=== PATIENT | male | born 1985 | race Caucasian/White ===

== ENCOUNTER 2021-05-09 01:23 | Emergency (ER) | payer OTHER ==
[2021-05-09 01:56] LABS: BASOPHILS # (AUTO) 0.1 10^3/uL (0.0-0.1); BASOPHILS % (AUTO) 0.7 %; EOSINOPHILS # (AUTO) 0.2 10^3/uL (0.0-0.7); EOSINOPHILS % (AUTO) 2.2 %; HCT - HEMATOCRIT 45.9 % (42.0-52.0); HGB - HEMOGLOBIN 15.4 g/dL (14.0-18.0); LYMPHOCYTES # (AUTO) 2.9 10^3/uL (1.5-3.5); LYMPHOCYTES % (AUTO) 35.2 %; MEAN CORPUSCULAR HEMOGLOBIN 28.2 pg (27.0-31.0); MEAN CORPUSCULAR HGB CONC 33.6 g/dL (32.0-36.0); MEAN CORPUSCULAR VOLUME 84.1 fL (80.0-94.0); MEAN PLATELET VOLUME 9.9 fL (7.4-11.4); MONOCYTES # (AUTO) 0.6 10^3/uL (0.0-1.0); MONOCYTES % (AUTO) 7.8 %; NEUTROPHILS # (AUTO) 4.3 10^3/uL (1.5-6.6); NEUTROPHILS % (AUTO) 53.7 %; PLT - PLATELET COUNT 221 10^3/uL (130-450); RED BLOOD COUNT 5.46 10^6/uL (4.70-6.10); RED CELL DISTRIBUTION WIDTH 12.1 % (12.0-15.0); WHITE BLOOD COUNT 8.1 x10^3/uL (4.8-10.8)
[2021-05-09 02:12] LABS: ALBUMIN 4.2 g/dL (3.2-5.5); ALBUMIN/GLOBULIN RATIO 1.9 (1.0-2.2); BILIRUBIN,TOTAL 0.5 mg/dL (0.2-1.0); CREATININE 0.9 mg/dL (0.6-1.2); POTASSIUM 3.5 mmol/L (3.5-5.0); TOTAL PROTEIN 6.4 g/dL (6.7-8.2)
--- NOTE | 2021-05-09 02:26 | XRAY Report ---
PROCEDURE: Chest 1 View X-Ray INDICATIONS: chest pain TECHNIQUE: One view of the chest was acquired. COMPARISON: None. FINDINGS: Surgical changes and devices: None. Lungs and pleura: No pleural effusions or pneumothorax. Lungs are clear. Mediastinum: Mediastinal contours appear normal. Heart size is normal. Bones and chest wall: No suspicious bony lesions. Overlying soft tissues appear unremarkable. IMPRESSION: No acute cardiopulmonary disease. Reviewed by: Jessica Spears MD on 05/09/2021 2:25 AM [facility] Approved by: Jessica Spears MD on 05/09/2021 2:25 AM [facility] Station ID: [id number]
[2021-05-09] MEDS ORDERED: diltiaZEM INJ 5 MG/ML VIAL IVP STA (02:44)
--- NOTE | 2021-05-09 03:18 | ED Physician Documentation ---
History of Present Illness - Stated complaint Stated Complaint: HIGH HR, SOA - Chief complaint Chief Complaint: Cardiac - History obtained from History obtained from: Patient - History of Present Illness Timing: Enter time (2199), Today - Additonal information Additional information: 35-year-old male with a prior history of an episode of atrial fibrillation 2 years ago which spontaneously converted after 16 hours, has developed symptoms again this evening while at rest.He states that he has been in excellent physical condition and has no other specific symptoms and no other medical history. He reports that he was on a medication for several months after this initial episode and then this was discontinued he does not know what that medication was.The patient states his symptoms are mild but he can feel that his heart is rapid and irregular. He denies any specific shortness of breath or near syncope. Denies any chest pain. Denies any recent illness. Review of Systems Constitutional: denies: Fever Eyes: denies: Decreased vision Ears: denies: Ear pain Nose: denies: Congestion Throat: denies: Sore throat Cardiac: reports: Palpitations. denies: Chest pain / pressure, Pedal edema, Calf pain Respiratory: denies: Dyspnea, Cough, Wheezing GI: denies: Abdominal Pain, Nausea, Vomiting, Constipation, Diarrhea : denies: Dysuria, Frequency Skin: denies: Rash Musculoskeletal: denies: Neck pain, Back pain, Extremity pain Neurologic: denies: Generalized weakness, Focal weakness, Numbness PD PAST MEDICAL HISTORY - Past Medical History Past Medical History: No Cardiovascular: Atrial fibrillation Respiratory: None Neuro: None Endocrine/Autoimmune: None GI: None : None HEENT: None Psych: None Musculoskeletal: None Derm: None - Past Surgical History Past Surgical History: No - Present Medications Home Medications: Ambulatory Orders Medication Instructions Recorded Confirmed No Known Home Medications 05/09/21 05/09/21 - Allergies Allergies/Adverse Reactions: Allergies Allergy/AdvReac Type Severity Reaction Status Date / Time No Known Drug Allergies Allergy Verified 05/09/21 01:44 - Social History Does the pt smoke?: No Smoking Status: Former smoker Does the pt drink ETOH?: No Does the pt have substance abuse?: No - Immunizations Immunizations are current?: Yes - POLST Patient has POLST: No PD ED PE NORMAL - Vitals Vital signs reviewed: Yes (Hypertensive) - General General: Alert and oriented X 3, No acute distress, Well developed/nourished - HEENT HEENT: Atraumatic, PERRL, EOMI - Neck Neck: Supple, no meningeal sign, No bony TTP - Cardiac Cardiac: No murmur, Other (Tachycardic irregularly irregular rhythm rate approximately 120) - Respiratory Respiratory: No respiratory distress, Clear bilaterally - Abdomen Abdomen: Normal bowel sounds, Soft, Non tender, Non distended, No organomegaly - Back Back: No CVA TTP, No spinal TTP - Derm Derm: Normal color, Warm and dry, No rash - Extremities Extremities: No deformity, No edema - Neuro Neuro: Alert and oriented X 3, a operator 2-12 intact, No motor deficit, No sensory deficit, Normal speech Eye Opening: Spontaneous Motor: Obeys Commands Verbal: Oriented GCS Score: 15 - Psych Psych: Normal mood, Normal affect Results - Vitals Vitals: Vital Signs - 24 hr 05/09/21 05/09/21 05/09/21 01:27 01:48 03:00 Temperature 36.6 C Heart Rate 98 106 H 98 Respiratory 20 17 18 Rate Blood Pressure 147/100 H 136/96 H 130/90 H O2 Saturation 98 97 98 05/09/21 05/09/21 05/09/21 03:05 03:07 03:30 Temperature Heart Rate 77 75 67 Respiratory 18 17 18 Rate Blood Pressure 121/85 H 117/79 107/79 O2 Saturation 97 98 98 Oxygen O2 Source Room air - EKG (time done) 0136 Rate: Rate (enter#) (98) Rhythm: Atrial fibrillation Ischemia: Normal ST segments Compare to prior EKG: Old EKG unavailable Computer interpretation: Agree with computer - Labs Labs: Laboratory Tests 05/09/21 05/09/21 05/09/21 01:50 01:50 01:50 WBC 8.1 RBC 5.46 Hgb 15.4 Hct 45.9 MCV 84.1 MCH 28.2 MCHC 33.6 RDW 12.1 Plt Count 221 MPV 9.9 Neut # (Auto) 4.3 Lymph # (Auto) 2.9 [place] # (Auto) 0.6 Eos # (Auto) 0.2 Baso # (Auto) 0.1 Absolute Nucleated RBC 0.00 Nucleated RBC % 0.0 Sodium 138 Potassium 3.5 Chloride 105 Carbon Dioxide 23 Anion Gap 10.0 BUN 15 Creatinine 0.9 Estimated GFR (MDRD) 97 Glucose 130 H Calcium 9.0 Total Bilirubin 0.5 AST 23 ALT 36 Alkaline Phosphatase 57 Troponin I High Sens 3.4 Total Protein 6.4 L Albumin 4.2 Globulin 2.2 Albumin/Globulin Ratio 1.9 Lipase 32 - Rads (name of study) chest Radiology: Prelim report reviewed (Impression: No acute cardiopulmonary disease.), EMP read indepedently, See rad report PD MEDICAL DECISION MAKING - ED course Complexity details: reviewed results, re-evaluated patient, considered differential, d/w patient ED course: Previously well 35-year-old male with a prior history of a single episode of atrial fibrillation that spontaneously converted does not feel that he has had episodes in between now in the past 2 years. He denies any episodic spells or episodes of palpitations. He has not had cardiac evaluation here. All of his care initially was done down in [place]. Today he has a normal physical examination does not have any distress associated with this but his heart rate is anywhere from 80-140. He is given a dose of diltiazem 20 mg intravenously. Diltiazem administered improves the heart rate to the 60 and 70 range patient has no symptoms he does feel that he can concentrate hard enough to to feel an irregular beat every so often.Patient appears to be tolerating the rhythm itself the rate is controlled and I have discussed with the patient urgent follow-up 12 referral for cardiology. He will likely convert spontaneously. Departure - Departure Disposition: 01 Home, Self Care Clinical Impression: Atrial fibrillation with RVR Condition: Stable Instructions: ED Afib Follow-Up: WLIFREDO LOPEZ MD [Primary Care Provider] - Comments: Kilo, today it appears you have atrial fibrillation with a rapid ventricular response. We have given you a dose of diltiazem which has reduced your rate and you appear to be tolerating this well. It is safe to go home to expect conversion. You may not convert and if you continue to have problems with rapid rate follow-up here or at [facility]. Follow-up with your primary care doctor for referral to cardiology this week
[2021-05-09] MEDS ORDERED: ASPIRIN CHEW 81 MG TABLET PO STA (03:55)
[2021-05-09 04:04] VITALS: BP 114/81
== END 2021-05-09 04:10 | disposition home or self-care (01) ==
LOC: ED 01:23
DX: I48.20 Chronic atrial fibrillation, unspecified (principal); Z87.891 Personal history of nicotine dependence
CPT/HCPCS: 36415; 71045; 80053; 83690; 84484; 85025; 93005; 96374; 99284; A9270